=== PATIENT | female | born 1975 | race Two or more races ===

== ENCOUNTER 2022-01-15 18:45 | Emergency (ER) | payer SELFPAY | END 2022-01-15 20:29 | disposition left against medical advice (07) | LOC: ER 18:47 | DX: R52 Pain, unspecified (principal); Z53.21 Procedure and treatment not carried out due to patient leaving prior to being seen by health care provider; W19.XXXA Unspecified fall, initial encounter; Y93.89 Activity, other specified; Y92.89 Other specified places as the place of occurrence of the external cause; Y99.8 Other external cause status ==

== ENCOUNTER 2022-01-15 20:55 | Emergency (ER) | payer SELFPAY | END 2022-01-15 21:53 | disposition left against medical advice (07) | LOC: ER 20:56 | DX: M79.603 Pain in arm, unspecified (principal); Z53.21 Procedure and treatment not carried out due to patient leaving prior to being seen by health care provider ==